=== PATIENT | male | born 1935 | race Caucasian/White ===

== ENCOUNTER 2020-10-12 17:43 | Inpatient (IN) | payer MEDICAID ==
[~2020-10-12] VITALS: Ht 172.7 cm; Wt 72.1 kg
[2020-10-12] MEDS ORDERED: SODIUM CHLORIDE 0.9% 1,000 ML IV ONE (19:30)
[2020-10-12] MEDS ORDERED: CEFTRIAXONE 1 G PREMIX 50 ML IV ONE (19:30)
[2020-10-12 20:54] LABS: BASOPHILS % 0.5 % (0.0-2.0); HEMATOCRIT. 35.7 % (42.0-52.0); HEMOGLOBIN. 11.8 g/dL (14.0-18.0); LYMPHOCYTES % 15.9 % (20.0-50.0); MEAN CORPUSCULAR VOLUME 87.8 fL (80.0-94.0); MEAN PLATELET VOLUME 8.1 fl (7.4-10.4); MONOCYTES % 8.8 % (2.0-8.0); NEUTROPHILS % 74.8 % (40.0-76.0); PLATELET 194 x1000/uL (130-400); RED BLOOD CELL COUNT 4.07 mill/uL (4.7-6.1); RED CELL DISTRIBUTION WIDTH 14.4 % (11.6-14.6)
[2020-10-12 20:57] LABS: CHLORIDE 103 mEq/L (98-107)
[2020-10-12 21:01] LABS: D-DIMER 1.56 mg/L FEU (<0.50); INR 1.1; PROTHROMBIN TIME 11.2 sec (9.6-11.0)
[2020-10-12 21:03] LABS: ETHANOL BLOOD < 10 mg/dL
[2020-10-12 21:18] LABS: CREATINE KINASE 3357 IU/L (39-308)
[2020-10-12 22:09] LABS: BG BASE EXCESS -4.2 mmol/L (-2.0-2.0); BG CARBOXYHEMOGLOBIN 0.8 % (0.5-1.5); BG DEOXYHEMOGLOBIN 8.3 % (0.0-5.0); BG HCO3 ACT 18.3 mmol/L (22.0-26.0); BG METHEMOGLOBIN 0.3 % (0.0-1.5); BG OXYGEN SATURATION 91.6 % (92.0-98.5); BG OXYHEMOGLOBIN 90.6 % (94.0-97.0); BG PCO2 26.2 mmHg (35.0-45.0); BG PH 7.462 (7.350-7.450); BG PO2 57.8 mmHg (75.0-100.0); BG SAMPLE SITE LEFT RADIAL; BG TOTAL HEMOGLOBIN 11.7 g/dL (12.0-18.0); BG VENT MODE ROOM AIR
[2020-10-13] MEDS ORDERED: GUAIFENESIN 200MG/10ML SUGAR FREE UDC PO PRN (00:15)
[2020-10-13] MEDS ORDERED: CEFTRIAXONE 1 G PREMIX 50 ML IV SCH (00:15)
[2020-10-13] MEDS: DEXT 5%/0.45% NACL 1000ML 1,000 ML IV SCH ×2 (00:15→13:46)
[2020-10-13] MEDS ORDERED: DOCUSATE SODIUM 100MG CAPSULE PO PRN (00:15)
[2020-10-13] MEDS ORDERED: ONDANSETRON HCL 4MG/2ML INJ IV PRN (00:15)
[2020-10-13] MEDS ORDERED: ACETAMINOPHEN 650MG SUPP PR PRN ×2 (00:15)
[2020-10-13] MEDS ORDERED: NA PHOS,M-B/NA PHOS,DI-BA ENEMA 118ML PR PRN (00:15)
[2020-10-13] MEDS ORDERED: MAGNESIUM/ALUMINUM HYDROXIDE/SIMETHICONE 30ML UDC PO PRN (00:15)
[2020-10-13 01:18] LABS: CLARITY URINE CLEAR (CLEAR); COLOR URINE DARK YELLOW (YELLOW); KETONES URINE 3+ (NEGATIVE); LEUKOCYTE ESTERASE URINE NEGATIVE (NEGATIVE); NITRITE URINE NEGATIVE (NEGATIVE); OCCULT BLOOD URINE 2+ (NEGATIVE); PROTEIN URINE 2+ (NEGATIVE); SPECIFIC GRAVITY URINE 1.022 (1.005-1.030)
[2020-10-13 01:30] LABS: *AMPHETAMINES SCREEN URINE NEGATIVE (NEGATIVE); *BARBITURATES SCREEN URINE NEGATIVE (NEGATIVE); *BENZODIAZEPINES SCREEN URINE NEGATIVE (NEGATIVE); *COCAINE SCREEN URINE NEGATIVE (NEGATIVE); CANNABINOID URINE SCREEN NEGATIVE (NEGATIVE); METHADONE URINE SCREEN NEGATIVE (NEGATIVE); OPIATES URINE SCREEN NEGATIVE (NEGATIVE); PHENCYCLIDINE URINE SCREEN NEGATIVE (NEGATIVE)
[2020-10-13 06:54] LABS: CREATINE KINASE MB FRACTION 5.4 ng/mL (0.5-3.6)
[2020-10-13 07:05] LABS: CREATINE KINASE 3148 IU/L (39-308)
[2020-10-13] MEDS: DIPHENHYDRAMINE 50MG/ML VIAL IV PRN (08:32)
[2020-10-13] MEDS: AZITHROMYCIN 500 MG in DEXT 5% WATER 250 ML IV SCH (11:20)
[2020-10-13] MEDS: DEXAMETHASONE 10 MG/ML VIAL IV SCH ×2 (11:20→18:16)
[2020-10-13 16:50] LABS: BASOPHILS % 0.7 % (0.0-2.0); HEMATOCRIT. 37.4 % (42.0-52.0); HEMOGLOBIN. 12.3 g/dL (14.0-18.0); MEAN CORPUSCULAR HEMOGLOBIN 28.8 pg (28.0-32.0); MEAN CORPUSCULAR VOLUME 87.3 fL (80.0-94.0); MEAN PLATELET VOLUME 7.6 fl (7.4-10.4); MONOCYTES % 7.5 % (2.0-8.0); NEUTROPHILS % 79.8 % (40.0-76.0); PLATELET 186 x1000/uL (130-400); RED BLOOD CELL COUNT 4.28 mill/uL (4.7-6.1); RED CELL DISTRIBUTION WIDTH 14.2 % (11.6-14.6)
[2020-10-13 16:58] LABS: CHLORIDE 103 mEq/L (98-107)
[2020-10-13 17:09] LABS: CREATINE KINASE MB FRACTION 6.5 ng/mL (0.5-3.6)
[2020-10-13 17:20] LABS: CREATINE KINASE 3031 IU/L (39-308)
[2020-10-13] MEDS ORDERED: CEFTRIAXONE 1,000 MG in DEXTROSE 5% WATER 50 ML IV SCH (18:00)
[2020-10-13] MEDS ORDERED: POTASSIUM CHLORIDE 20MEQ TABLET SR PO NR (19:00)
[2020-10-13] MEDS ORDERED: SODIUM CHLORIDE 0.45% 1,000 ML IV SCH (19:00)
[2020-10-14] MEDS ORDERED: HALOPERIDOL LACTATE 5MG/ML VIAL IM SCH (01:45)
[2020-10-14] MEDS: DEXT 5%/0.45% NACL 1000ML 1,000 ML IV SCH ×2 (10:10→16:15)
[2020-10-14 12:00] VITALS: BP 130/76
[2020-10-14] MEDS: DEXAMETHASONE 10 MG/ML VIAL IV SCH ×2 (12:31→17:01)
[2020-10-14] MEDS ORDERED: PHEN100C4 PO (14:33)
[2020-10-14 16:00] VITALS: BP 146/74
[2020-10-14] MEDS: AZITHROMYCIN 500 MG in DEXT 5% WATER 250 ML IV SCH (16:38)
[2020-10-14 20:00] VITALS: BP 129/79
[2020-10-14] MEDS: CEFTRIAXONE 1,000 MG in SODIUM CHLORIDE 0.9% 50 ML IV SCH (20:00)
[2020-10-15] VITALS: BP 128/75
[2020-10-15] MEDS: DEXAMETHASONE 10 MG/ML VIAL IV SCH ×5 (00:28→22:41)
[2020-10-15 04:00] VITALS: BP 113/66
[2020-10-15] MEDS: DEXT 5%/0.45% NACL 1000ML 1,000 ML IV SCH ×2 (06:34→18:30)
[2020-10-15 08:00] VITALS: BP 138/79
[2020-10-15] MEDS: AZITHROMYCIN 500 MG in DEXT 5% WATER 250 ML IV SCH (11:00)
[2020-10-15] MEDS ORDERED: AZIT500T3 MT (14:08)
[2020-10-15 20:00] VITALS: BP 142/84
[2020-10-15] MEDS: CEFTRIAXONE 1,000 MG in SODIUM CHLORIDE 0.9% 50 ML IV SCH (20:00)
[2020-10-16] VITALS: BP 112/70
[2020-10-16 04:00] VITALS: BP 105/69
[2020-10-16] MEDS: DEXAMETHASONE 10 MG/ML VIAL IV SCH ×3 (05:33→18:35)
[2020-10-16 12:00] VITALS: BP 129/80
[2020-10-16] MEDS: DEXT 5%/0.45% NACL 1000ML 1,000 ML IV SCH ×2 (13:08→21:35)
[2020-10-16 16:00] VITALS: BP 145/87
[2020-10-16] MEDS: AZITHROMYCIN 500 MG in DEXT 5% WATER 250 ML IV SCH (16:20)
[2020-10-16 20:00] VITALS: BP 116/67
[2020-10-16 21:31] LABS: BASOPHILS % 0.2 % (0.0-2.0); HEMATOCRIT. 32.8 % (42.0-52.0); HEMOGLOBIN. 11.1 g/dL (14.0-18.0); LYMPHOCYTES % 10.2 % (20.0-50.0); MEAN CORPUSCULAR HEMOGLOBIN 29.2 pg (28.0-32.0); MEAN CORPUSCULAR VOLUME 86.4 fL (80.0-94.0); MEAN PLATELET VOLUME 7.8 fl (7.4-10.4); MONOCYTES % 3.9 % (2.0-8.0); NEUTROPHILS % 84.7 % (40.0-76.0); PLATELET 215 x1000/uL (130-400); RED CELL DISTRIBUTION WIDTH 14.3 % (11.6-14.6)
[2020-10-16 21:39] LABS: CHLORIDE 109 mEq/L (98-107)
[2020-10-16 22:33] LABS: BG BASE EXCESS 0.4 mmol/L (-2.0-2.0); BG CARBOXYHEMOGLOBIN 0.6 % (0.5-1.5); BG DEOXYHEMOGLOBIN 7.8 % (0.0-5.0); BG FRACTION INSPIRED OXYGEN 36; BG HCO3 ACT 23.5 mmol/L (22.0-26.0); BG METHEMOGLOBIN 0.3 % (0.0-1.5); BG OXYGEN SATURATION 92.1 % (92.0-98.5); BG OXYHEMOGLOBIN 91.3 % (94.0-97.0); BG PCO2 32.7 mmHg (35.0-45.0); BG PH 7.474 (7.350-7.450); BG PO2 61.5 mmHg (75.0-100.0); BG TOTAL HEMOGLOBIN 11.5 g/dL (12.0-18.0); BG VENT MODE NASAL CANNULA
[2020-10-17] VITALS: BP 119/77
[2020-10-17] MEDS: DEXAMETHASONE 10 MG/ML VIAL IV SCH ×4 (01:14→17:13)
[2020-10-17 04:00] VITALS: BP 110/66
[2020-10-17] MEDS: CEFTRIAXONE 1,000 MG in DEXTROSE 5% WATER 50 ML IV SCH ×2 (10:11→17:13)
[2020-10-17] MEDS: AZITHROMYCIN 500 MG in DEXT 5% WATER 250 ML IV SCH (13:10)
[2020-10-17] MEDS: DEXT 5%/0.45% NACL 1000ML 1,000 ML IV SCH (13:11)
[2020-10-17 16:00] VITALS: BP 131/93
[2020-10-17 20:00] VITALS: BP 113/68
[2020-10-17 21:56] LABS: HEMATOCRIT. 34.7 % (42.0-52.0); HEMOGLOBIN. 11.6 g/dL (14.0-18.0); MEAN CORPUSCULAR VOLUME 86.6 fL (80.0-94.0); MEAN PLATELET VOLUME 8.6 fl (7.4-10.4); PLATELET 238 x1000/uL (130-400); RED BLOOD CELL COUNT 4.01 mill/uL (4.7-6.1); RED CELL DISTRIBUTION WIDTH 14.4 % (11.6-14.6)
[2020-10-17 22:17] LABS: CHLORIDE 104 mEq/L (98-107)
[2020-10-17 22:27] LABS: CREATINE KINASE 376 IU/L (39-308)
[2020-10-17 22:36] LABS: PLATELET ESTIMATE NORMAL
[2020-10-18] VITALS: BP 128/73
[2020-10-18] MEDS: DEXT 5%/0.45% NACL 1000ML 1,000 ML IV SCH ×2 (00:15→14:09)
[2020-10-18] MEDS: DEXAMETHASONE 10 MG/ML VIAL IV SCH ×4 (01:55→17:33)
[2020-10-18 08:00] VITALS: BP 106/74
[2020-10-18 12:00] VITALS: BP 124/82
[2020-10-18] MEDS: AZITHROMYCIN 500 MG in DEXT 5% WATER 250 ML IV SCH (14:07)
[2020-10-18 16:00] VITALS: BP 137/82
[2020-10-18] MEDS: CEFTRIAXONE 1,000 MG in DEXTROSE 5% WATER 50 ML IV SCH (17:33)
[2020-10-18 20:00] VITALS: BP 120/78
[2020-10-19] VITALS: BP 130/80
[2020-10-19] MEDS: DEXAMETHASONE 10 MG/ML VIAL IV SCH ×4 (00:21→17:20)
[2020-10-19] MEDS: DIPHENHYDRAMINE 50MG/ML VIAL IV PRN (02:39)
[2020-10-19 04:00] VITALS: BP 153/83
[2020-10-19] MEDS: DEXT 5%/0.45% NACL 1000ML 1,000 ML IV SCH ×2 (05:07→17:20)
[2020-10-19 08:00] VITALS: BP 150/87
[2020-10-19 12:00] VITALS: BP 119/69
[2020-10-19 16:00] VITALS: BP 116/68
[2020-10-19] MEDS: CEFTRIAXONE 1,000 MG in DEXTROSE 5% WATER 50 ML IV SCH (17:18)
[2020-10-19 18:22] LABS: BG BASE EXCESS 0.5 mmol/L (-2.0-2.0); BG CARBOXYHEMOGLOBIN 0.6 % (0.5-1.5); BG DEOXYHEMOGLOBIN 2.2 % (0.0-5.0); BG HCO3 ACT 24.3 mmol/L (22.0-26.0); BG METHEMOGLOBIN 0.3 % (0.0-1.5); BG OXYGEN SATURATION 97.8 % (92.0-98.5); BG OXYHEMOGLOBIN 96.9 % (94.0-97.0); BG PCO2 36.5 mmHg (35.0-45.0); BG PH 7.442 (7.350-7.450); BG PO2 113.7 mmHg (75.0-100.0); BG SAMPLE SITE RIGHT RADIAL; BG TOTAL HEMOGLOBIN 13.1 g/dL (12.0-18.0); BG VENT MODE MASK - NRB
[2020-10-19 20:00] VITALS: BP 126/82
[2020-10-20] VITALS: BP 147/91
[2020-10-20 04:00] VITALS: BP 148/87
[2020-10-20] MEDS: DEXT 5%/0.45% NACL 1000ML 1,000 ML IV SCH ×2 (05:35→18:55)
[2020-10-20] MEDS: DEXAMETHASONE 10 MG/ML VIAL IV SCH ×4 (07:28→18:15)
[2020-10-20 12:00] VITALS: BP 158/94
[2020-10-20 16:00] VITALS: BP 141/95
[2020-10-20 20:00] VITALS: BP 126/84
[2020-10-20] MEDS: DIPHENHYDRAMINE 50MG/ML VIAL IV PRN (21:53)
[2020-10-21] VITALS: BP 133/85
[2020-10-21] MEDS: DEXAMETHASONE 10 MG/ML VIAL IV SCH ×4 (00:24→18:08)
[2020-10-21 04:00] VITALS: BP 147/92
[2020-10-21] MEDS: DIPHENHYDRAMINE 50MG/ML VIAL IV PRN (06:15)
[2020-10-21 08:00] VITALS: BP 177/102
[2020-10-21] MEDS: DEXT 5%/0.45% NACL 1000ML 1,000 ML IV SCH ×2 (08:02→23:46)
[2020-10-21] MEDS: CLONIDINE 0.1MG TABLET PO PRN (08:21)
[2020-10-21 12:00] VITALS: BP 90/63
[2020-10-21 16:00] VITALS: BP 145/99
[2020-10-21 20:00] VITALS: BP 148/95
[2020-10-22] VITALS: BP 130/89
[2020-10-22] MEDS ORDERED: DEXAMETHASONE 10 MG/ML VIAL IV SCH
[2020-10-22] MEDS: DEXAMETHASONE 10 MG/ML VIAL IV SCH ×4 (00:01→18:45)
[2020-10-22 04:00] VITALS: BP 148/95
[2020-10-22 08:00] VITALS: BP 160/90
[2020-10-22] MEDS: CHOLECALCIFEROL (D3) 1000 UNIT TABLET PO SCH (09:00)
[2020-10-22] MEDS: ASCORBIC ACID 500 MG TABLET PO SCH ×2 (09:00→18:43)
[2020-10-22] MEDS: ZINC SULFATE 220 MG ( 50 ) CAPSULE PO SCH (11:04)
[2020-10-22 15:25] LABS: BG BASE EXCESS 2.4 mmol/L (-2.0-2.0); BG CARBOXYHEMOGLOBIN 0.7 % (0.5-1.5); BG DEOXYHEMOGLOBIN 21.7 % (0.0-5.0); BG FRACTION INSPIRED OXYGEN 21; BG HCO3 ACT 24.8 mmol/L (22.0-26.0); BG METHEMOGLOBIN 0.3 % (0.0-1.5); BG OXYGEN SATURATION 78.1 % (92.0-98.5); BG OXYHEMOGLOBIN 77.3 % (94.0-97.0); BG PCO2 31.4 mmHg (35.0-45.0); BG PH 7.515 (7.350-7.450); BG PO2 37.9 mmHg (75.0-100.0); BG SAMPLE SITE RIGHT BRACHIAL; BG TOTAL HEMOGLOBIN 12.8 g/dL (12.0-18.0); BG VENT MODE ROOM AIR
[2020-10-22 16:00] VITALS: BP 150/94
[2020-10-22] MEDS: DEXT 5%/0.45% NACL 1000ML 1,000 ML IV SCH (18:44)
[2020-10-22 20:00] VITALS: BP 149/96
[2020-10-22 21:53] LABS: CHLORIDE 107 mEq/L (98-107)
[2020-10-23] VITALS: BP 146/85
[2020-10-23 00:07] LABS: HEMATOCRIT. 40.9 % (42.0-52.0); HEMOGLOBIN. 13.5 g/dL (14.0-18.0); MEAN CORPUSCULAR HEMOGLOBIN 28.8 pg (28.0-32.0); MEAN CORPUSCULAR VOLUME 87.6 fL (80.0-94.0); MEAN PLATELET VOLUME 8.4 fl (7.4-10.4); PLATELET 242 x1000/uL (130-400); RED BLOOD CELL COUNT 4.67 mill/uL (4.7-6.1); RED CELL DISTRIBUTION WIDTH 14.7 % (11.6-14.6)
[2020-10-23] MEDS: DEXT 5%/0.45% NACL 1000ML 1,000 ML IV SCH (00:15)
[2020-10-23 01:53] LABS: PLATELET ESTIMATE NORMAL
[2020-10-23 04:00] VITALS: BP 136/78
[2020-10-23] MEDS: DEXAMETHASONE 10 MG/ML VIAL IV SCH ×4 (06:00→17:37)
[2020-10-23 08:00] VITALS: BP 132/76
[2020-10-23] MEDS: CHOLECALCIFEROL (D3) 1000 UNIT TABLET PO SCH (10:30)
[2020-10-23] MEDS: ASCORBIC ACID 500 MG TABLET PO SCH ×2 (10:30→17:37)
[2020-10-23] MEDS: ZINC SULFATE 220 MG ( 50 ) CAPSULE PO SCH (10:31)
[2020-10-23 12:00] VITALS: BP 152/93
[2020-10-23 16:00] VITALS: BP 136/81
[2020-10-23 20:00] VITALS: BP 150/87
[2020-10-24] VITALS: BP 160/85
[2020-10-24] MEDS: DEXAMETHASONE 10 MG/ML VIAL IV SCH ×4 (02:23→17:29)
[2020-10-24] MEDS: CLONIDINE 0.1MG TABLET PO PRN (03:41)
[2020-10-24 04:00] VITALS: BP 151/88
[2020-10-24 08:00] VITALS: BP 128/78
[2020-10-24] MEDS: ASCORBIC ACID 500 MG TABLET PO SCH ×2 (09:00→17:29)
[2020-10-24] MEDS: ZINC SULFATE 220 MG ( 50 ) CAPSULE PO SCH (09:37)
[2020-10-24] MEDS: CHOLECALCIFEROL (D3) 1000 UNIT TABLET PO SCH (09:37)
[2020-10-24 12:00] VITALS: BP 150/88
[2020-10-24 20:00] VITALS: BP 139/89
[2020-10-25] VITALS: BP 156/93
[2020-10-25 04:00] VITALS: BP 115/74
[2020-10-25] MEDS: DEXAMETHASONE 10 MG/ML VIAL IV SCH ×2 (07:45→16:05)
[2020-10-25] MEDS: ASCORBIC ACID 500 MG TABLET PO SCH ×2 (09:00→16:04)
[2020-10-25] MEDS: CHOLECALCIFEROL (D3) 1000 UNIT TABLET PO SCH (10:16)
[2020-10-25] MEDS: ZINC SULFATE 220 MG ( 50 ) CAPSULE PO SCH (10:16)
[2020-10-25 10:38] LABS: HEMATOCRIT. 43.6 % (42.0-52.0); HEMOGLOBIN. 14.1 g/dL (14.0-18.0); MEAN CORPUSCULAR HEMOGLOBIN 28.5 pg (28.0-32.0); MEAN CORPUSCULAR VOLUME 88.2 fL (80.0-94.0); MEAN PLATELET VOLUME 8.7 fl (7.4-10.4); PLATELET 215 x1000/uL (130-400); RED BLOOD CELL COUNT 4.94 mill/uL (4.7-6.1); RED CELL DISTRIBUTION WIDTH 14.7 % (11.6-14.6)
[2020-10-25 10:50] LABS: CHLORIDE 106 mEq/L (98-107)
[2020-10-25 14:04] LABS: PLATELET ESTIMATE NORMAL
[2020-10-25 16:00] VITALS: BP 159/85
[2020-10-25] MEDS: DEXT 5%/0.45% NACL 1000ML 1,000 ML IV SCH (16:04)
[2020-10-25 20:00] VITALS: BP_SYST 170; BP_SYST 182; BP_DIAS 105; BP_DIAS 106
[2020-10-25] MEDS: CLONIDINE 0.1MG TABLET PO PRN (22:46)
[2020-10-26] VITALS: BP 105/67
[2020-10-26 04:00] VITALS: BP 115/72
[2020-10-26 08:00] VITALS: BP 141/91
[2020-10-26] MEDS: ASCORBIC ACID 500 MG TABLET PO SCH ×2 (09:00→17:11)
[2020-10-26] MEDS: ZINC SULFATE 220 MG ( 50 ) CAPSULE PO SCH (09:38)
[2020-10-26] MEDS: CHOLECALCIFEROL (D3) 1000 UNIT TABLET PO SCH (09:39)
[2020-10-26] MEDS: DEXAMETHASONE 10 MG/ML VIAL IV SCH ×2 (09:39→17:11)
[2020-10-26 20:00] VITALS: BP 131/81
[2020-10-26 20:25] LABS: HEMATOCRIT. 37.2 % (42.0-52.0); HEMOGLOBIN. 12.1 g/dL (14.0-18.0); MEAN CORPUSCULAR HEMOGLOBIN 28.9 pg (28.0-32.0); MEAN CORPUSCULAR VOLUME 88.7 fL (80.0-94.0); MEAN PLATELET VOLUME 7.1 fl (7.4-10.4); PLATELET 170 x1000/uL (130-400); RED BLOOD CELL COUNT 4.19 mill/uL (4.7-6.1); RED CELL DISTRIBUTION WIDTH 15.1 % (11.6-14.6)
[2020-10-26 20:41] LABS: CHLORIDE 109 mEq/L (98-107)
[2020-10-26 22:29] LABS: PLATELET ESTIMATE NORMAL
[2020-10-27] VITALS: BP 136/72
[2020-10-27] MEDS: DEXAMETHASONE 10 MG/ML VIAL IV SCH ×3 (03:10→12:00)
[2020-10-27 04:00] VITALS: BP 130/80
[2020-10-27] MEDS: DEXT 5%/0.45% NACL 1000ML 1,000 ML IV SCH (04:10)
[2020-10-27 08:00] VITALS: BP 131/79
[2020-10-27] MEDS: CHOLECALCIFEROL (D3) 1000 UNIT TABLET PO SCH (09:48)
[2020-10-27] MEDS: ZINC SULFATE 220 MG ( 50 ) CAPSULE PO SCH (09:48)
[2020-10-27] MEDS: ASCORBIC ACID 500 MG TABLET PO SCH (09:49)
[2020-10-27 12:00] VITALS: BP 121/81
[2020-10-27] MEDS ORDERED: CLOTRIMAZOLE 1% CREAM 30GM TOP SCH (13:00)
[2020-10-27 15:53] LABS: HEMATOCRIT. 36.4 % (42.0-52.0); HEMOGLOBIN. 11.8 g/dL (14.0-18.0); MEAN CORPUSCULAR HEMOGLOBIN 28.4 pg (28.0-32.0); MEAN CORPUSCULAR VOLUME 87.6 fL (80.0-94.0); MEAN PLATELET VOLUME 7.9 fl (7.4-10.4); PLATELET 194 x1000/uL (130-400); RED BLOOD CELL COUNT 4.16 mill/uL (4.7-6.1); RED CELL DISTRIBUTION WIDTH 15.3 % (11.6-14.6)
[2020-10-27 15:55] LABS: CHLORIDE 106 mEq/L (98-107)
[2020-10-27 16:00] VITALS: BP 135/76
[2020-10-27] MEDS ORDERED: DEXAMETHASONE 10 MG/ML VIAL IV SCH (16:30)
[2020-10-27 17:16] LABS: PLATELET ESTIMATE NORMAL
[2020-10-27 17:26] VITALS: BP 135/71
== END 2020-10-27 18:00 | disposition home or self-care (01) | DRG 720 ==
LOC: ER 17:43 → EDBD 23:17 → 3WST 23:17 → EDBEDREQ 23:35 → EDBEDREQTM 23:35 → MICUSO 10-13 16:50 → 7WST 10-14 09:22
PROVIDERS: ADMIT Family Medicine; ATTEND Family Medicine
DX: A41.89 Other specified sepsis (principal); U07.1 COVID-19; J96.01 Acute respiratory failure with hypoxia; G93.41 Metabolic encephalopathy; D64.9 Anemia, unspecified; E87.1 Hypo-osmolality and hyponatremia; E43 Unspecified severe protein-calorie malnutrition; E87.6 Hypokalemia; M62.82 Rhabdomyolysis; J15.9 Unspecified bacterial pneumonia; R74.01 Elevation of levels of liver transaminase levels; G40.909 Epilepsy, unspecified, not intractable, without status epilepticus; J12.82 Pneumonia due to coronavirus disease 2019; B37.2 Candidiasis of skin and nail; R62.7 Adult failure to thrive; Z68.24 Body mass index [BMI] 24.0-24.9, adult; Z91.81 History of falling; Z78.1 Physical restraint status
CPT/HCPCS: 36415; 36600; 71045; 71275; 80048; 80053; 80305; 80320; 81003; 82140; 82375; 82550; 82553; 82728; 82805; 82962; 83605; 83615; 83880; 84145; 84484; 85025; 85379; 85384; 86140; 99291; A6261; C1893; J0456; J0696; J1100; J1200; J1630; J7030; J7060; J7070; U0003; G0480